=== PATIENT | male | born 2000 | race Two or more races ===

== ENCOUNTER 2024-05-06 11:29 | Emergency (ER) | payer OTHER ==
[~2024-05-06] VITALS: Ht 172.7 cm; Wt 63.5 kg
[2024-05-06] MEDS ORDERED: METHYLPREDNISOLONE SOD SUCC 40 MG VIAL IM ONE (13:45)
[2024-05-06] MEDS ORDERED: CEFTRIAXONE SODIUM 2,000 MG VIAL IM ONE (13:45)
[2024-05-06 14:45] LABS: HEMATOCRIT 42.1 % (39.0-48.0); HEMOGLOBIN 14.4 g/dL (13-16.00); MEAN CELL VOLUME 86.5 fL (80.0-100.00); MEAN CORPUSCULAR HEMOGLOBIN 29.6 pg (27.00-32.0); MEAN CORPUSCULAR HGB CONC 34.2 g/dl (32.0-36.0); PLATELET COUNT 226 K/uL (150-450); RED BLOOD COUNT 4.86 M/uL (4.00-6.00); RED CELL DISTRIBUTION WIDTH 13.3 % (11.5-14.5)
== END 2024-05-06 16:30 | disposition home or self-care (01) ==
LOC: ER 11:30
PROVIDERS: General Practice
DX: R53.81 Other malaise (principal); J02.9 Acute pharyngitis, unspecified; Z20.822 Contact with and (suspected) exposure to COVID-19

== ENCOUNTER → 2025-02-03 | Emergency (ER) | payer OTHER ==
[~2025-02-03] VITALS: Ht 170.2 cm; Wt 63.5 kg
[2025-02-03 21:32] VITALS: BP 110/73; O2SAT 99
== END | disposition home or self-care (01) ==
LOC: ER 20:48
DX: M25.561 Pain in right knee (principal)

== ENCOUNTER 2025-02-04 12:15 | Outpatient (CLI) | payer OTHER | END 2025-02-04 12:18 | disposition home or self-care (01) | LOC: MRI 12:15 | DX: S83.203A Other tear of unspecified meniscus, current injury, right knee, initial encounter (principal); X58.XXXA Exposure to other specified factors, initial encounter; Y93.9 Activity, unspecified; Y92.9 Unspecified place or not applicable; Y99.9 Unspecified external cause status | CPT/HCPCS: 73721 ==

== ENCOUNTER → 2025-05-18 | Emergency (ER) | payer OTHER ==
[~2025-05-18] VITALS: Ht 170.2 cm; Wt 63.5 kg
[~2025-05-18] MED LIST: FAMOTIDINE/PF 20 MG/2 ML VIAL IV STA; KETOROLAC TROMETHAMINE 30 MG VIAL IM STA
[2025-05-19 00:41] LABS: BASO % 0.4 % (0.1-1.2); EOS # 0.10 (0.04-0.54); EOS % 1.0 % (0.7-7.0); LYMPH # 2.67 (1.18-3.74); LYMPH % 27.1 % (19.3-53.1); MEAN PLATELET VOLUME 10.20 fl (9.4-12.4); MONO # 1.16 (0.24-0.82); MONO % 11.8 % (4.7-12.5); NEUT # 5.84 (1.56-6.13); NEUT % 59.4 % (34.0-71.1); RED CELL DISTRIBUTION WIDTH 12.9 % (11.6-14.4)
[2025-05-19 01:03] LABS: ALT/SGPT 25.0 U/L (12-78); AST/SGOT 17.0 U/L (15-37); BILIRUBIN TOTAL 0.65 mg/dL (0.3-1.2); BUN CREA RATIO 9.0 (7.0-25.0); CREATININE SERUM 0.96 mg/dL (0.70-1.30); GFR 96.23; GLOBULINA 3.9 G/DL (2.4-3.5); GLUCOSE FASTING 76.0 mg/dL (65-100); OSMOLALITY SERUM 275.0 MOSM/KG (275-295)
[2025-05-19 01:10] LABS: COVID-19 AG NEGATIVE (NEGATIVE)
== END | disposition home or self-care (01) ==
LOC: ER 20:23
PROVIDERS: General Practice
DX: R19.7 Diarrhea, unspecified (principal); R10.9 Unspecified abdominal pain; Z20.822 Contact with and (suspected) exposure to COVID-19